=== PATIENT | male | born 1950 | race Caucasian/White ===

== ENCOUNTER 2017-06-02 09:44 | Emergency (ER) | payer MEDICARE, OTHER ==
[~2017-06-02] VITALS: Ht 177.8 cm; Wt 79.4 kg
[2017-06-02] MEDS ORDERED: NASONEX17 GM (11:48)
[2017-06-02] MEDS ORDERED: BROMFED DM COU118 ML PO (11:48)
[2017-06-02] MEDS ORDERED: IBUPROFEN400 MG PO (11:48)
[2017-06-02] MEDS ORDERED: XYZAL5 MG PEG (11:48)
[2017-06-02] MEDS ORDERED: LOSARTAN POTASS25 MG (13:42)
[2017-06-02] MEDS ORDERED: ARMOUR THYROID60 MG PO (13:43)
== END 2017-06-02 12:00 | disposition home or self-care (01) ==
LOC: FSED 09:44
DX: R50.9 Fever, unspecified (principal); J00 Acute nasopharyngitis [common cold]
CPT/HCPCS: 87400; 99282

== ENCOUNTER 2021-02-17 11:38 | Emergency (ER) | payer MEDICARE, OTHER ==
[~2021-02-17] VITALS: Ht 177.8 cm; Wt 87.1 kg
[~2021-02-17 11:38] MED LIST: ARMOUR THYROID60 MG PO; BROMFED DM COU118 ML PO; IBUPROFEN400 MG PO; LOSARTAN POTASS25 MG; NASONEX17 GM; XYZAL5 MG PEG
[2021-02-17] MEDS ORDERED: ATORVASTATIN CA20 MG PO (12:01)
[2021-02-17] MEDS ORDERED: AZITHROMYCIN250 MG PO (12:22)
[2021-02-17] MEDS ORDERED: DEXAMETHASONE SOD PHOS 10 MG/1 ML VIAL IM ONE (12:30)
[2021-02-17] MEDS ORDERED: DEXAMETHASONE SOD PHOS INJ 4 MG/ML SDV ONE (12:33)
== END 2021-02-17 12:40 | disposition home or self-care (01) ==
LOC: FSED 12:12
DX: J06.9 Acute upper respiratory infection, unspecified (principal); R05.9 Cough, unspecified; I10 Essential (primary) hypertension; E78.5 Hyperlipidemia, unspecified; E03.9 Hypothyroidism, unspecified
CPT/HCPCS: 96372; 99283; J1100

== ENCOUNTER 2024-06-18 07:52 | Emergency (ER) | payer MEDICARE, OTHER ==
[~2024-06-18] VITALS: Ht 177.8 cm; Wt 89.5 kg
[~2024-06-18 07:52] MED LIST changes: +ATORVASTATIN CA20 MG PO; +AZITHROMYCIN250 MG PO; +BENZONATATE100 MG PO; +CLARITIN10 MG PO; +FLONASE ALLERG9.9 ML INH; +KETOROLAC TROME10 MG PO; +MUCINEX DM ER1 EAC1 PO
[2024-06-18 08:01] VITALS: TEMP 98.6
[2024-06-18] MEDS: HYDRALAZINE HCL 20 MG/ML VIAL IV ONE (09:03)
[2024-06-18] MEDS: ALBUTEROL/IPRATROPIUM 3 ML NEB NEB ONE (09:04)
[2024-06-18] MEDS: ACETAMINOPHEN 325 MG TAB PO ONE (09:05)
[2024-06-18 09:06] VITALS: BP 150/92
[2024-06-18] MEDS: NITROGLYCERIN 2% OINT 1 GM PKT TOP ONE (09:06)
[2024-06-18 09:19] VITALS: PULSE 70; RESP 17
[2024-06-18] MEDS ORDERED: HYDROCHLOROTHIA25 MG PO (09:35)
[2024-06-18] MEDS ORDERED: IPRAT-ALBUT 0.5-3 ML NEB (09:35)
[2024-06-18] MEDS ORDERED: EASY NEB COMPR1 EACH (09:35)
[2024-06-18 09:37] VITALS: PULSE 76; RESP 17; O2SAT 95
[2024-06-19] MEDS ORDERED: HYDROXYZINE HCL25 MG PO (15:27)
== END 2024-06-18 09:44 | disposition home or self-care (01) ==
LOC: FSED 08:01
DX: R06.02 Shortness of breath (principal); R00.1 Bradycardia, unspecified; E87.5 Hyperkalemia; I10 Essential (primary) hypertension; Z11.52 Encounter for screening for COVID-19; R94.31 Abnormal electrocardiogram [ECG] [EKG]
CPT/HCPCS: 0223U; 71046; 80053; 82553; 83880; 84484; 85025; 85379; 87400; 93005; 94760; 96374; 99284; J0360

== ENCOUNTER 2024-06-18 21:12 | Emergency (ER) | payer MEDICARE, OTHER ==
[~2024-06-18] VITALS: Ht 177.8 cm; Wt 89.4 kg
[~2024-06-18 21:12] MED LIST changes: +EASY NEB COMPR1 EACH; +HYDROCHLOROTHIA25 MG PO; +IPRAT-ALBUT 0.5-3 ML NEB
[2024-06-18 21:43] VITALS: TEMP 98
[2024-06-18 22:26] VITALS: PULSE 67; RESP 20; O2SAT 98
[2024-06-19] MEDS ORDERED: HYDROXYZINE HCL25 MG PO (15:27)
== END 2024-06-18 22:30 | disposition home or self-care (01) ==
LOC: ER 21:24
DX: G47.00 Insomnia, unspecified (principal); I10 Essential (primary) hypertension; E78.5 Hyperlipidemia, unspecified; F17.210 Nicotine dependence, cigarettes, uncomplicated
CPT/HCPCS: 99282

== ENCOUNTER 2024-06-19 15:02 | Emergency (ER) | payer MEDICARE ==
[~2024-06-19] VITALS: Ht 177.8 cm; Wt 89.0 kg
[2024-06-19] MEDS ORDERED: HYDROXYZINE HCL25 MG PO (15:27)
[2024-06-19 15:50] VITALS: PULSE 68; RESP 16; TEMP 97.8; O2SAT 97
== END 2024-06-19 15:50 | disposition home or self-care (01) ==
LOC: FSED 15:05
DX: G47.00 Insomnia, unspecified (principal); I10 Essential (primary) hypertension; E78.5 Hyperlipidemia, unspecified
CPT/HCPCS: 99283